=== PATIENT | female | born 1950 | race Caucasian/White ===

== ENCOUNTER 2016-11-25 11:52 | Emergency (ER) | payer BC ==
[~2016-11-25] VITALS: Ht 152.4 cm; Wt 75.3 kg
[~2016-11-25 11:52] MED LIST: DILAUDID2 MG PO; PREDNISONE50 MG PO; SKELAXIN800 MG PO
[2016-11-25] MEDS ORDERED: VALIUM5 MG PO (14:48)
[2016-11-25] MEDS ORDERED: INDOCIN25 MG PO (14:48)
[2016-11-25 15:21] VITALS: BP 166/70
== END 2016-11-25 15:23 | disposition home or self-care (01) ==
LOC: RME 11:52 → EME 11:52 → RME 15:23
DX: M50.30 Other cervical disc degeneration, unspecified cervical region (principal); M51.34 Other intervertebral disc degeneration, thoracic region; M62.830 Muscle spasm of back; R20.9 Unspecified disturbances of skin sensation; R23.2 Flushing
CPT/HCPCS: 72040; 72070; 93005; 99281; 99284